=== PATIENT | male | born 1945 | race Caucasian/White ===

== ENCOUNTER → 2018-11-12 10:07 | Outpatient (CLI) | payer MEDICARE ==
--- NOTE | 2018-11-15 02:13 | EC ---
PATIENT:ROMAN MIDDLETON DATE OF SERVICE: 11/12/18 SEX: M MEDICAL RECORD: [id number] DATE OF : [birth year] LOCATION:[facility] AGE OF PATIENT: 73 ADMISSION DATE: 11/12/18 REFERRING PHYSICIAN: INTERPRETING PHYSICIAN: OLIMPIA GLOVER MD ECHOCARDIOGRAM REPORT ECHO CHARGES 4 ECHO COMPLETE Date: 11/12/18 CLINICAL DIAGNOSIS: DYSPNEA HX PACER ECHOCARDIOGRAPHIC MEASUREMENTS (adult normal given) AC root (d.<3.7cm) 3.5 cm LV Septum d (<1.2 cm> 1.5 cm Valve Excursion 1.9 cm LV Septum (systole) 1.7 cm Left Atria (s.<4.0cm> 3.6 cm LVPW d(<1.2cm) 1.6 cm RV (d.<2.3cm) 3.8 cm LVPW (sytole) 1.7 cm LV diastole(<5.6CM) 5.1 cm MV E-F(>70mm/sec) cm LV systole 3.5 cm LVOT Diameter 2.0 cm MV exc.(>10mm) 1.7 cm Est.ejection fraction (50-75%) % DOPPLER: LVIT cm/sec A 59.0 cm/sec E 41.0 cm/sec LA cm/sec RVSP 27 mmHg LVOT 90 cm/sec AOP1/2T m/s Asc. Ao 102 cm/sec RVOT 76 cm/sec RA cm/sec PA 132 cm/sec AV Gradient Peak 4.14 mmHg AV Mean 2.13 mmHg AV Area 3.0 cm MV Gradient Peak 2.52 mmHg MV Mean 0.84 mmHg MV Area cm COMMENTS: Registered Physical Therapist: Christi FLORES Sole Cementer: 3 Dr. Burroughs TAPE# PACS Pericardial Effusion N DATE OF SERVICE: 11/12/2018 Adequate 2-D, color-flow and spectral Doppler, and M-mode. Mild LVH. LV internal dimensions are normal. Wall motion is normal. EF greater than 55%. Aortic valve is sclerotic without evidence of stenosis by Doppler interrogation. Left atrium is normal at 3.6 cm. Mitral valve shows no prolapse. Trace MR. Right-sided chambers are grossly normal. Mild TR. 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 ECHOCARDIOGRAM REPORT [id number] ROMAN MIDDLETON TRANSINT:[id number] Voice Confirmation ID: [id number] DOCUMENT ID: [id number] OLIMPIA GLOVER MD at 0213 CC: [id number] DICTATION DATE: 11/14/18 1342 EXTERMINATION SUPERVISOR: 11/14/18 1527 [facility] CLI 11/12/18 [place] [id number] [place] [id number]
== END | disposition home or self-care (01) ==
LOC: D.HCCARDIO 10:07
PROVIDERS: ATTEND Internal Medicine Interventional Cardiology
DX: R06.09 Other forms of dyspnea (principal)